=== PATIENT | female | born 1980 | race Caucasian/White ===

== ENCOUNTER 2019-02-17 20:44 | Emergency (ER) | payer BC ==
--- OUTSIDE RECORDS SUMMARY | 2019-02-17 20:48 | XMS REPORT | Continuity of Care Document ---
:1980 External Reference #:[id number] Author Name Tray Mtz CNM Address [address] [place] [address] Care Team Providers Name Role Phone Segun Zhu M.D. Care Team Information Director Audience Marketing Unavailable Segun Zhu M.D. Primary Care Physician Unavailable Payers Date Identification Numbers Payment Provider Subscriber Effective: Policy Number: [id number] Makayla BC/BS [place] Nany Caicedo 2014 [place] PayID: [id number] [address] [address] [place] [address] Family History Date Family Member(s) Observation Comments General Family hx sig for Colon Ca- paternal grandmother Father [place] Mother Freq bronchial issues` Children None Siblings 2 Siblings Oldest of 3 children First Brother A&W First Sister A&W Paternal Grandfather due to Alcoholism () Paternal Grandmother due to Colon Cancer () Maternal Grandfather due to Stroke () Maternal Grandfather due to Fall () Maternal Grandmother due to Emphysema () Social History Type Date Description Comments Sex Unknown Education Highest Level Completed, Master's Degree Marital Status Lives With Spouse Sleep Typically sleeps 8 hours a night Pets 1 cat Pets 2 dogs 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[employer] Cigarette Use Former Cigarette Smoker X4 years, Quit 1/2 Pack Daily 09/2015 ETOH Use Occasionally consumes approx 6 drinks a alcohol week Recreational Drug Use Denies Drug Use Tobacco Use Start: Unknown End: Patient is a former Unknown smoker Smoking Status Reviewed: 02/16/19 Patient is a former smoker Exercise Type/Frequency Exercises sporadically Seat Belt/Car Seat Always uses seat belt Currently Active Patient is currently sexually active Contraceptive Methods None STD's No STD History Allergies, Adverse Reactions, Alerts Active Allergies Reaction Severity Comments Date Augmentin 10/31/2015 Medications Active Medications SIG Qnty Indications Ordering Provider Date Sertraline HCL Everardo Mc M.D. 06/08/2018 100mg Concentrate Motrin Ib Unknown Vitamin B-Complex Unknown History Medications Pyridium 1 three times a day 9tabs R30.0 Tammy Pradhan, 10/22/2016 - 100mg as needed bladder ANP-C 10/24/2016 Tablets pain Zovia 1/35E (28) take 1 tablet by 84tabs Everardo Cormier 08/27/2016 - mouth every day as Vinod Mc 06/08/2018 1-35mg-mcg Tablets directed - skip the placebos Microgestin Fe take as directed 3tabs Everardo Cormier 06/25/2016 - 1.5/30 Vinod Mc 08/27/2016 1.5-30mg-mcg Tablets No Active Unknown 01/02/2016 - Medications 06/25/2016 Gildess 1.5/30 1 po daily/pt to not 21tabs Rut 10/31/2015 - skip any pills/ take MD Gigi 12/29/2015 1.5-30mg-mcg continuously Tablets Diflucan take 1 tablet by 14tabs Rut 10/31/2015 - 100mg mouth two times a MD Gigi 12/29/2015 Tablets day for 7 days Gildess Fe 1.5/30 Unknown - 10/31/2015 Medications Administered in Office Medication SIG Qnty Indications Ordering Provider Date PT SCRN Tbco Id as Non User Tray Mtz CNM 02/16/2019 Injection PT SCRN Tbco Id as Non User Everardo Mc M.D. 06/08/2018 Injection Vital Signs Date Vital Result Comment 02/16/2019 8:14am BP Systolic 122 mmHg BP Diastolic 76 mmHg Height 68 inches 5'8" Weight 254.00 lb BMI (Body Mass Index) 38.6 kg/m2 Last Menstrual Period 6975567 1 Parity 0 06/08/2018 10:56am BP Systolic 112 mmHg BP Diastolic 82 mmHg Height 68 inches 5'8" Weight 258.00 lb BMI (Body Mass Index) 39.2 kg/m2 Last Menstrual Period 2318483 0 08/19/2017 1:07pm BP Systolic 124 mmHg BP Diastolic 72 mmHg Height 68 inches 5'8" Weight 246.00 lb BMI (Body Mass Index) 37.4 kg/m2 Last Menstrual Period 2116021 0 03/03/2017 9:03am BP Systolic 122 mmHg BP Diastolic 80 mmHg Height 68 inches 5'8" Weight 251.00 lb BMI (Body Mass Index) 38.2 kg/m2 0 10/22/2016 12:46pm BP Systolic 112 mmHg BP Diastolic 78 mmHg Height 68 inches 5'8" Last Menstrual Period 5595085 0 Parity 0 08/27/2016 1:44pm BP Systolic 130 mmHg BP Diastolic 84 mmHg Height 68 inches 5'8" Weight 251.00 lb BMI (Body Mass Index) 38.2 kg/m2 Last Menstrual Period 8227919 0 06/25/2016 1:37pm BP Systolic 120 mmHg BP Diastolic 70 mmHg Height 68 inches 5'8" Weight 243.00 lb BMI (Body Mass Index) 36.9 kg/m2 Last Menstrual Period 8904047 0 01/02/2016 2:22pm BP Systolic 122 mmHg BP Diastolic 80 mmHg Height 68 inches 5'8" Weight 242.00 lb BMI (Body Mass Index) 36.8 kg/m2 Last Menstrual Period 3582521 0 Parity 0 10/31/2015 12:36pm BP Systolic 118 mmHg BP Diastolic 76 mmHg Height 68 inches 5'8" Weight 246.00 lb BMI (Body Mass Index) 37.4 kg/m2 Last Menstrual Period 2055006 0 Parity 0 Results Test Date Facility Test Result H/L Range Note Laboratory test 02/16/2019 [facility] HCG <pending> [place] [address] [phone] Laboratory test 06/25/2016 [facility] Cytology SEE RESULT 1 [place] [address] BELOW [phone] Human Papilloma Virus Rna Negative N Negative 2 Laboratory test 01/17/2016 [facility] Surgical SEE RESULT 3 , 4 [place] [address] Pathology BELOW [phone] Urine Culture And 10/31/2015 [facility] Urine Culture SEE RESULT 5 [place] [address] BELOW [phone] 1 SEE RESULT BELOW Name: NANY CAICEDO : [address]: Everardo Mc MD Acct: [id number] Unit: [id number] AGE: 35 Location: [facility] Re06/25/16 SEX: F Status: REG REF SPEC: [id number] MELISSA: 06/25/16-[address]: Everardo Mc MD REQ: [id number] RECD: 06/25/16 STATUS: SOUT _ ORDERED: IMAGE ANALYSIS, HPV/Thin Prep COMMENTS: [id number] FINAL DIAGNOSIS Negative for Intraepithelial lesion or Malignancy A. Ectocervical/Endocervical Specimen Adequacy: Satisfactory of evaluation Transformation zone component identified Patient Information: HPV: High risk HPV RNA testing regardless of pap results. Actual Specimen Date: 06/25/16 Last Menstrual Date: 06/13/16 Spec Date if unknown: 2013 Date Time Test Result Flag (u) Normal Range 06/25/16 1414 HPV RNA Negative Negative The high-risk HPV types detected by the assay include: 16, 18, 31, 33, 35, 39, 45, 51, 52, 56, 58, 59, 66, and 68. Signed (signature on file) LISA Koroma(ASCP) 06/26 1429 This Pap test was evaluated with the assistance of the Diamond Microwave DevicesPrep Test Imaging System. Due to cytologic findings at the cook room supervisor microscope, comprehensive manual rescreening by a Tax Adjuster may be required. The Pap Smear is a screening test designed to aid in the detection of premalignant and malignant conditions of the uterine cervix. It is not a diagnostic procedure and should not be used as the sole means of detecting cervical cancer. Both false- positive and false- negative reports do occur. Depending on your risk status, a Pap smear should be obtained and evaluated every 1-3 years. END OF REPORT * ML=Testing performed at Main Lab DEPARTMENT OF PATHOLOGY, [address] [place] [address] Gutierrez Singh M.D. Director [facility] # [id number] 2 The high-risk HPV types detected by the assay include: 16, 18, 31, 33, 35, 39, 45, 51, 52, 56, 58, 59, 66, and 68. 3 [id number] 4 SEE RESULT BELOW Name: NANY CAICEDO : [address]: Donnell Obando MD Acct: [id number] Unit: [id number] AGE: 35 Location: [facility] Re01/18/16 SEX: F Status: REG REF SPEC: [id number] MELISSA: 01/17/16- SUBM DR: Donnell Obando MD REQ: [id number] RECD: 01/22/16-1208 STATUS: CAROLYN JEAN DR: Rut Zhu MD _ ORDERED: LEVEL IV/3 COMMENTS: [id number] FINAL DIAGNOSIS 1. Stomach, polyp, biopsy: -- Hyperplastic fundic gland polyp. 2. Stomach, polyp, biopsy: -- Hyperplastic fundic gland polyp. 3. Colon, mid right, biopsy: -- Serrated adenomatous polyp. -- No high-grade dysplasia identified. CLINICAL HISTORY Nausea with occasional vomiting after eating, late fall/June lower abdominal pain with bloating R > L, August 07 pain increased with period, September had fever before hospital 2 days. Dropped dairy, stopped smoking then restricted processed. Sharp stabbing pelvic/daily nausea. Vegan 2008, Usual bowel habit - 1-2x daily, no GERD POST-OPERATIVE DIAGNOSIS EGD Esophagus - normal angle, Stomach - pale polyps 2 NESP, Duodenum - normal. Colonoscopy - 6 mm at distal sigmoid, otherwise normal. Conclusions/Plan: 1) Loose EG, 2) Gastric polyps, 3) Right colon polyp, 4) Nausea, 5) Sharp pains, 6) Acute illness, 7) Dysmenorrhea. CONTINUED ON NEXT PAGE * ML=Testing performed at Main Lab DEPARTMENT OF PATHOLOGY, [address] [place] [address] Gutierrez Singh M.D. Director [facility] # [id number] RUN DATE: 01/23/16 [facility] LAB LIVE PAGE 2 Patient: AMIRANANY Dalal [id number] (Continued) GROSS DESCRIPTION (Continued) GROSS DESCRIPTION 1. The specimen is received in formalin labeled, Gastric Polyp, and consists of a 0.8 x 0.5 x 0.2 cm aggregate of farias-white irregular soft tissue fragments, which is submitted entirely in one cassette. 2. The specimen is received in formalin labeled, Polyp Gastric Body, and consists of a 0.6 a 0.5 x 0.2 cm aggregate of farias-white irregular soft tissue fragments, which is submitted entirely in one cassette. 3. The specimen is received in formalin labeled, Mid Right Colon Polyp, and consists of a 0.8 x 0.5 x 0.2 cm aggregate of farias irregular soft tissue fragments, which is submitted entirely in one cassette. Signed (signature on file) Gutierrez Singh MD 1127 END OF REPORT * ML=Testing performed at Main Lab DEPARTMENT OF PATHOLOGY, [address] [place] [address] Gutierrez Singh M.D. Director [facility] # [id number] 5 SEE RESULT BELOW Name: NANY CAICEDO : [address]: Rut Yu MD Acct: [id number] Unit: [id number] AGE: 34 Location: [facility] Re10/31/15 SEX: F Status: REG REF SPEC: [id number] MELISSA: 10/31/15-[address]: Rut Yu MD REQ: [id number] RECD: 10/31/155890 STATUS: COMP _ SOURCE: URINE SPDESC: ORDERED: Urine Culture Procedure Result Reported Site Urine Culture Final 11/02/15- 800 ML No Growth (<1,000 CFU/mL) * ML - MAIN LAB ([facility]) . END OF REPORT * ML=Testing performed at Main Lab DEPARTMENT OF PATHOLOGY, [address] [place] [address] Gutierrez Singh M.D. Director [facility] # [id number] Procedures Date Code Description Status 02/16/2019 45368 OB Ultrasound First Trimester Completed 06/08/2018 83728 Echography Transvaginal Completed 03/24/2018 09088 Echography Transvaginal Completed 03/03/2017 24974 Echography Transvaginal Completed 08/27/2016 27816 Echography Transvaginal Completed 12/23/2015 95966960 Colonoscopy Completed Encounters Type Date Location Provider Dx Diagnosis Office Visit 02/16/2019 [facility] Tray Mtz CNM O02.1 Missed 9:20a Office Visit 06/08/2018 [facility] Everardo Mc, N80.1 Endometriosis of ovary 11:00a M.D. Office Visit 08/19/2017 [facility] Everardo Mc, Z01.419 Encntr for obstetrics and gynecology professor exam 1:20p M.D. (general) (routine) w/o abn findings N80.1 Endometriosis of ovary Office Visit 03/03/2017 9:20a [facility] Everardo Cormier N80.1 Endometriosis of Vinod Mc ovary Office Visit 10/22/2016 1:00p [facility] Tammy Pradhan, R30.0 Dysuria ANP-C Office Visit 08/27/2016 1:40p [facility] Everardo Cormier N80.1 Endometriosis of Vinod Mc ovary Office Visit 06/25/2016 1:40p [facility] Everardo Cormier Z01.411 Encntr for obstetrics and gynecology professor exam Vinod Mc (general) (routine) w abnormal findings N80.9 Endometriosis, unspecified Office Visit 01/02/2016 2:00p [facility] Rut R10.30 Lower abdominal MD Gigi pain, unspecified Office Visit 10/31/2015 1:00p [facility] Rut R10.2 Pelvic and perineal MD Gigi pain B37.49 Other urogenital candidiasis Office Visit 10/16/2015 9:11a Non - Surgical Rut R10.31 [facility] MD Gigi quadrant pain Office Visit 10/15/2015 9:11a Non - Surgical Yina Henson R10.31 [facility] Vinod quadrant pain Office Visit 10/14/2015 9:10a Non - Surgical Fabiola Armenta R10.31 [facility] quadrant pain Plan of Treatment 02/16/2019 - Tray Mtz, CNMO02.1 Missed abortionComments:Pt and understandably saddened and overwhelmed by news. Emotional support given. Discussed community resources for loss PRN. Discussed options: Expectant management vs. medical management. Pt opts for expectant management at this time. Might consider medical management over the weekend if does not occur spontaneously. Reviewed medication management. Counseled for Mifeprex and Misoprostol. Reviewed use. Advised that we could senior counsel and dispense medication in office PRN. Will contact pt today or tomorrow with blood type and touch base re: mgmt plans. Bleeding precautions reviewed/when to seek urgent evaluation for excess blood loss. Also encouraged ibuprofen 600mg q 6 hours PRN cramping/pain.
--- OUTSIDE RECORDS SUMMARY | 2019-02-17 20:48 | XMS REPORT | Continuity of Care Document ---
:1980 External Reference #:[id number] Author Name Tray Mtz CNM Address [address] [place] [address] Care Team Providers Name Role Phone Segun Zhu M.D. Care Team Information Fleet Dispatch Manager Unavailable Segun Zhu M.D. 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 Dispensed Tray Mtz CNM 02/16/2019 200mg in office for Tablets management of Mab Misoprostol 4 tabs per vagina 4tabs Tray Mtz CNM 02/16/2019 200mcg 24 hours after Tablets mifeprex for management of Mab. Dispensed in office Sertraline HCL Everardo Mc, 06/08/2018 100mg M.DTianna Concentrate Motrin Ib Unknown Vitamin B-Complex Unknown [...] Mass Index) 38.6 kg/m2 Last Menstrual Period 0309598 1 Parity 0 06/08/2018 10:56am BP Systolic 112 mmHg BP Diastolic 82 mmHg Height 68 inches 5'8" Weight 258.00 lb BMI (Body Mass Index) 39.2 kg/m2 Last Menstrual Period 8996165 0 08/19/2017 1:07pm BP Systolic 124 mmHg BP Diastolic 72 mmHg Height 68 inches 5'8" Weight 246.00 lb BMI (Body Mass Index) 37.4 kg/m2 Last Menstrual Period 7170079 0 03/03/2017 9:03am BP Systolic 122 mmHg BP Diastolic 80 mmHg Height 68 inches 5'8" Weight 251.00 lb BMI (Body Mass Index) 38.2 kg/m2 0 10/22/2016 12:46pm BP Systolic 112 mmHg BP Diastolic 78 mmHg Height 68 inches 5'8" Last Menstrual Period 9760118 0 Parity 0 08/27/2016 1:44pm BP Systolic 130 mmHg BP Diastolic 84 mmHg Height 68 inches 5'8" Weight 251.00 lb BMI (Body Mass Index) 38.2 kg/m2 Last Menstrual Period 6768341 0 06/25/2016 1:37pm BP Systolic 120 mmHg BP Diastolic 70 mmHg Height 68 inches 5'8" Weight 243.00 lb BMI (Body Mass Index) 36.9 kg/m2 Last Menstrual Period 3961421 0 01/02/2016 2:22pm BP Systolic 122 mmHg BP Diastolic 80 mmHg Height 68 inches 5'8" Weight 242.00 lb BMI (Body Mass Index) 36.8 kg/m2 Last Menstrual Period 3754230 0 Parity 0 10/31/2015 12:36pm BP Systolic 118 mmHg BP Diastolic 76 mmHg Height 68 inches 5'8" Weight 246.00 lb BMI (Body Mass Index) 37.4 kg/m2 Last Menstrual Period 5655267 0 Parity 0 Results Test Date Facility Test Result H/L Range Note Laboratory test 02/16/2019 [facility] HCG 2523.00 mIU/ mL 1 [place] [address] [phone] Type And Screen 02/16/2019 [facility] [place] [address] Type [phone] Antibody Screen NEGATIVE Laboratory test 06/25/2016 [facility] Cytology SEE RESULT BELOW 2 finding [place] [phone] Human Papilloma Virus Rna Negative N Negative 3 Laboratory test 01/17/2016 [facility] Surgical SEE RESULT 4 , 5 finding [place] [address] Pathology BELOW [phone] Urine Culture And 10/31/2015 [facility] Urine Culture SEE RESULT 6 Sensitivities [place] BELOW [phone] 1 <5.0 Negative 5.0 - 25.0 Indeterminate (Repeat testing recommended after 72 hours) >25.0 Positive Perimenopausal women can display HCG levels of up to 20 mIU/mL 2 SEE RESULT BELOW Name: NANY CAICEDO : [address]: Everardo Mc MD Acct: [id number] Unit: [id number] AGE: 35 Location: [facility] Re06/25/16 SEX: F Status: REG REF SPEC: [id number] MELISSA: 06/25/16-[address]: Everardo Mc MD REQ: [id number] RECD: 06/25/16 STATUS: SOUT _ ORDERED: IMAGE ANALYSIS, HPV/Thin Prep COMMENTS: [id number] FINAL DIAGNOSIS Negative for Intraepithelial lesion or [...] was evaluated with the assistance of the [employer] Test Imaging System. Due to cytologic findings at the health officer microscope, comprehensive manual rescreening by a Cash Applications Specialist may be required. The Pap Smear is [...] performed at Main Lab DEPARTMENT OF PATHOLOGY, [address] [place] [address] Gutierrez Singh M.D. Director [facility] # [id number] 3 The high-risk HPV types detected by the assay include: 16, 18, 31, 33, 35, 39, 45, 51, 52, 56, 58, 59, 66, and 68. 4 [id number] 5 SEE RESULT BELOW Name: NANY CAICEDO : [address]: Donnell Obando MD Acct: [id number] Unit: [id number] AGE: 35 Location: [facility] Re01/18/16 SEX: F Status: REG REF SPEC: [id number] MELISSA: 01/17/16- SUBM DR: Donnell Obando MD REQ: [id number] RECD: 01/22/16-1208 STATUS: CAROLYN JEAN DR: Rut Zhu MD _ ORDERED: LEVEL IV/3 COMMENTS: [id number] FINAL DIAGNOSIS 1. Stomach, polyp, biopsy: -- [...] performed at Main Lab DEPARTMENT OF PATHOLOGY, [address] [place] [address] Gutierrez Singh M.D. Director [facility] # [id number] RUN DATE: 01/23/16 [facility] LAB LIVE PAGE 2 Patient: NANY CAICEDO [id number] (Continued) GROSS DESCRIPTION (Continued) GROSS DESCRIPTION 1. [...] performed at Main Lab DEPARTMENT OF PATHOLOGY, [address] [place] [address] Gutierrez Singh M.D. Director [facility] # [id number] 6 SEE RESULT BELOW Name: NANY CAICEDO : [address]: Rut Yu MD Acct: [id number] Unit: [id number] AGE: 34 Location: [facility] Re10/31/15 SEX: F Status: REG REF SPEC: [id number] MELISSA: 10/31/[address] [facility] [address]: Rut Yu MD REQ: [id number] RECD: 10/31/15 STATUS: COMP _ SOURCE: URINE SPDESC: ORDERED: Urine Culture Procedure Result Reported Site Urine Culture Final 11/02/15- 800 ML No Growth (<1,000 CFU/mL) * ML - MAIN LAB ([place]) . END OF REPORT * ML=Testing performed at Main Lab DEPARTMENT OF PATHOLOGY, [address] [place] [address] Gutierrez Singh M.D. Director [facility] # [id number] Procedures Date Code Description Status 02/16/2019 99078 OB Ultrasound First Trimester Completed 06/08/2018 81497 Echography Transvaginal Completed 03/24/2018 37064 Echography Transvaginal Completed 03/03/2017 81394 Echography Transvaginal Completed 08/27/2016 75028 Echography Transvaginal Completed 12/23/2015 31751607 Colonoscopy Completed Encounters Type Date Location Provider Dx Diagnosis Office Visit 02/16/2019 [facility] Office Tray Mtz CNM O02.1 Missed 9:20a Office Visit 06/08/2018 [facility] Office Everardo Mc N80.1 Endometriosis of ovary 11:00a M.D. Office Visit 08/19/2017 [facility] Office Everardo Mc Z01.419 Encntr for manager database exam 1:20p M.D. (general) (routine) w/o abn findings N80.1 Endometriosis of ovary Office Visit 03/03/2017 9:20a [facility] Everardo Cormier N80.1 Endometriosis of Vinod Mc ovary Office Visit 10/22/2016 1:00p [facility] Tammy Pradhan, R30.0 Dysuria ANP-C Office Visit 08/27/2016 1:40p [facility] Everardo Cormier N80.1 Endometriosis of Vinod Mc ovary Office Visit 06/25/2016 1:40p [facility] Everardo Cormier Z01.411 Encntr for manager database exam Vinod Mc (general) (routine) w abnormal findings N80.9 Endometriosis, unspecified Office Visit 01/02/2016 2:00p [facility] Rut R10.30 Lower abdominal MD Gigi pain, unspecified Office Visit 10/31/2015 1:00p [facility] Rut R10.2 Pelvic and perineal MD Gigi pain B37.49 Other urogenital candidiasis Office Visit 10/16/2015 9:11a Non - Surgical Rut R10.31 [facility] MD Gigi quadrant pain Office Visit 10/15/2015 9:11a Non - Surgical Yina Henson R10.[address] [facility] Vinod quadrant pain Office Visit 10/14/2015 9:10a Non - Surgical Fabiola Armenta, R10.31 [facility] quadrant pain Plan of Treatment Future Appointment(s):02/23/2019 9:00 am - Laboratory at [facility]
--- NOTE | 2019-02-17 22:06 | ED ---
Abdominal Pain/Female - HPI Summary HPI Summary: This pt is a 38 y/o female presenting to [facility] c/o lower abd pain for the past 3 hours. Pt reports she found out she was having a miscarriage yesterday morning. Pt was prescribed Mifepristone and Misoprostol. Pt notes she began to have spotting on 02/11/19 which was described as brown in color. She notes that as of 2 days ago she began to have more bleeding. Pt spoke with her multimedia engineer and her an US that confirmed she was having a miscarriage yesterday. Pt states she was about 8 weeks . She took Mifepristone last night at 1800 and today she took Misoprostol. Pt notes she had immediate vaginal bleeding after taking Misoprostol today. She currently reports her abd pain is 9/10 in severity. Denies fever, chest pain, SOB, nausea, vomiting. Pt notes she just passed a big blood clot while in the bathroom in the ED. Pt did take Hydrocodone today at 1930 without relief. - History of Current Complaint Chief Complaint: EDAbdPain Stated Complaint: PREG/MISCARRIAGE PER Time Seen by Provider: 02/17/19 21:57 Hx Obtained From: Patient Hx Last Menstrual Period: NOW Onset/Duration: Lasting Hours, Still Present Timing: Hours Severity Currently: Severe Pain Intensity: 9 Pain Scale Used: 0-10 Numeric Location: Other - lower abdominal Radiates: No Aggravating Factor(s): Nothing Alleviating Factor(s): Nothing Associated Signs and Symptoms: Positive: Vaginal Bleeding. Negative: Fever, Chest Pain, Nausea, Vomiting, Other: - SOB Allergies/Adverse Reactions: Allergies Allergy/AdvReac Type Severity Reaction Status Date / Time amoxicillin [From Augmentin] Allergy Anaphylatic Verified 02/17/19 20:53 Shock clavulanic acid Allergy Anaphylatic Verified 02/17/19 20:53 [From Augmentin] Shock shellfish derived Allergy Unknown Verified 02/17/19 20:53 Reaction Details PMH/Surg Hx/FS Hx/Imm Hx Endocrine/Hematology History: Denies: Hx Diabetes, Hx Thyroid Disease Cardiovascular History: Denies: Hx Congestive Heart Failure, Hx Hypertension, Hx Pacemaker/ICD Respiratory History: Denies: Hx Asthma, Hx Chronic Obstructive Pulmonary Disease (COPD) GI History: Denies: Hx Ulcer History: Denies: Hx Renal Disease Sensory History: Reports: Hx Contacts or Glasses Denies: Hx Hearing Aid Opthamlomology History: Reports: Hx Contacts or Glasses Neurological History: Reports: Hx Migraine Psychiatric History: Denies: Hx Panic Disorder - Surgical History Surgery Procedure, Year, and Place: bunionectomy BILATERAL. WISDOM TEETH Infectious Disease History: No Infectious Disease History: Reports: Traveled Outside the in Last 30 Days - [place] Denies: Hx Hepatitis, Hx Human Immunodeficiency Virus (HIV) - Family History Known Family History: Negative: Cardiac Disease Family History: no reported cardiovascular issues in family lineage - Social History Alcohol Use: Occasionally Hx Substance Use: No Substance Use Type: Reports: None Hx Tobacco Use: Yes Smoking Status (MU): Current Every Day Smoker Type: Cigarettes Amount Used/How Often: 1/2 PPD Have You Smoked in the Last Year: Yes Review of Systems Negative: Fever Negative: Chest Pain Negative: Shortness Of Breath Positive: Abdominal Pain. Negative: Vomiting, Nausea Genitourinary: Other - POSITIVE: vaginal bleeding All Other Systems Reviewed And Are Negative: Yes Physical Exam - Summary Physical Exam Summary: Appearance: Well-appearing, Well-nourished, lying in bed comfortably Skin: Warm, dry, no obvious rash Eyes: sclera anicteric, no conjunctival pallor ENT: mucous membranes moist, pharynx appears normal Neck: Supple, nontender Respiratory: Clear to auscultation, no signs of respiratory distress Cardiovascular: Normal S1, S2. No murmurs. Normal distal pulses in tibial and radial bilaterally. Abdomen: Soft, diffuse abdominal tenderness, normal active bowel sounds present Musculoskeletal: Normal, Strength/ROM Intact Neurological: A&Ox3, awake and alert, mentation is normal, speech is fluent and appropriate Psychiatric: affect is normal, does not appear anxious or depressed Triage Information Reviewed: Yes Vital Signs On Initial Exam: Initial Vitals Temp Pulse Resp BP Pulse Ox 98.8 F 86 24 157/128 96 02/17/19 20:45 02/17/19 20:45 02/17/19 20:45 02/17/19 20:45 02/17/19 20:45 Vital Signs Reviewed: Yes Diagnostics - Vital Signs Vital Signs Temp Pulse Resp BP Pulse Ox 02/17/19 20:45 98.8 F 86 24 157/128 96 - Laboratory Result Diagrams: 02/17/19 22:14 02/17/19 22:14 Lab Statement: Any lab studies that have been ordered have been reviewed, and results considered in the medical decision making process. Abdominal Pain Fem Course/Dx - Course Course Of Treatment: Pt is a 38 y/o female presenting to [facility] c/o lower abd pain for the past 3 hours. Pt found out she was having a miscarriage yesterday morning, this was confirmed by an US. She was about 8 weeks . She took Mifepristone last night at 1800 and today she took Misoprostol. Pt notes she had immediate vaginal bleeding after taking Misoprostol today. Currently rates her abd pain 9/10 in severity. Pt took hydrocodone today at 19:30 without relief. Test results remarkable for WBC of 12.8. In the ED course the pt was given Toradol and morphine. Discussed the case with Dr. Mc, OB, who recommends pain medications and if worse to call him back. Pt is feeling better after pain medications. She will be discharged home with follow up from her OB. - Diagnoses Provider Diagnoses: Miscarriage - Provider Notifications Discussed Care Of Patient With: Everardo Mc Time Discussed With Above Provider: 22:15 Instructed by Provider To: Other - Discussed the case with Dr. Mc, OB, who reports to give pt pain medications and if worse call back. Discharge - Sign-Out/Discharge Documenting (check all that apply): Patient Departure - Discharge home Patient Received Moderate/Deep Sedation with Procedure: No - Discharge Plan Condition: Good Disposition: HOME Patient Education Materials: Miscarriage (ED) Referrals: Everardo Mc MD [Medical Doctor] - Additional Instructions: Call your OB's office in the morning to let them know how you are doing and find out when you need to be checked next. - Billing Disposition and Condition Condition: GOOD Disposition: Home - Attestation Statements Document Initiated by Eliot: Yes Documenting Scribe: Shanon Kumar Provider For Whom Eliot is Documenting (Include Credential): Maverick Chappell MD Scribe Attestation: Shanon Shaver, harpreeted for Maverick Chappell MD on 02/18/19 at 0643. Scribe Documentation Reviewed: Yes Provider Attestation: The documentation as recorded by the Shanon chakraborty accurately reflects the service I personally performed and the decisions made by me, Maverick Chappell MD Status of Scribe Document: Viewed
[2019-02-17] MEDS ORDERED: Morphine 4 MG/ML VIAL (1 ml) 4 MG/ML VIAL IV ONE ×2 (22:11→23:06)
[2019-02-17] MEDS ORDERED: Ketorolac INJ* 30 MG/ML 1 ML VIAL IV PUSH ONE (22:11)
[2019-02-17 22:20] LABS: ABS Basophils 0.1 10^3/ul (0-0.2); ABS Eosinophils 0.2 10^3/ul (0-0.6); ABS Lymphocytes 3.1 10^3/ul (1.0-4.8); ABS Monocytes 1.2 10^3/ul (0-0.8); ABS Neutrophils 8.2 10^3/ul (1.5-7.7); Eosinophil % 1.4 %; Hematocrit 39 % (35-47); Hemoglobin 13.4 g/dL (12.0-16.0); Lymphocyte % 24.5 %; Mean Corpuscular HGB Conc 34 g/dL (31-36); Mean Corpuscular Hemoglobin 31 pg (27-31); Mean Corpuscular Volume 90 fL (80-97); Platelet Count 261 10^3/uL (150-450); Red Blood Count 4.36 10^6 /uL (3.70-4.87); Red Cell Distribution Width 13 % (10-15); White Blood Count 12.8 10^3/uL (3.5-10.8)
[2019-02-17 22:37] LABS: Albumin 4.2 g/dL (3.2-5.2); Albumin/Globulin Ratio 1.7 (1-3); BUN/Creatinine Ratio 13.8 (8-20); Calcium 9.3 mg/dL (8.6-10.3); EGFR African American 88.6 (>60); EGFR Non-African American 73.3 (>60); Globulin 2.5 g/dL (2-4); Potassium 3.8 mmol/L (3.5-5.0); Total Bilirubin 0.4 mg/dL (0.2-1.0); Total Protein 6.7 g/dL (6.4-8.9)
[2019-02-18 02:33] VITALS: BP 125/70
== END 2019-02-18 02:32 | disposition home or self-care (01) ==
LOC: ED 20:44
DX: O03.9 Complete or unspecified spontaneous abortion without complication (principal); F17.210 Nicotine dependence, cigarettes, uncomplicated; Z3A.08 8 weeks gestation of pregnancy
CPT/HCPCS: 36415; 80053; 85025; 96374; 96375; 99283; J1885; J2270